=== PATIENT | female | born 1980 | race Caucasian/White ===

== ENCOUNTER 2016-09-10 14:55 | Emergency (ER) | payer OTHER ==
[2016-09-10 15:03] VITALS: O2SAT 100
--- NOTE | 2016-09-10 16:23 | C.PDOC ---
History Of Present Illness 36 year old female presents to the ED with complaints of nausea, vomiting, and epigastric pain starting last night. Patient states she drank a lot last night, notes that her abdominal pain and vomiting resolved, however nausea persists. She denies chest pain, cough, fever, diarrhea, dysuria. Time Seen by Provider: 09/10/16 15:16 Chief Complaint (Nursing): Abdominal Pain History Per: Patient History/Exam Limitations: no limitations Onset/Duration Of Symptoms: Days Current Symptoms Are (Timing): Still Present Severity: Mild Radiation Of Pain To:: None Associated Symptoms: Nausea. denies: Vomiting Abnormal Vaginal Bleeding: No Past Medical History Reviewed: Historical Data, Nursing Documentation, Vital Signs Vital Signs: Last Vital Signs Temp 98.4 F 09/10/16 16:24 Pulse 84 09/10/16 16:24 Resp 17 09/10/16 16:24 BP 112/72 09/10/16 16:24 Pulse Ox 100 09/10/16 16:29 - Medical History PMH: No Chronic Diseases Family History: States: No Known Family Hx - Social History Hx Alcohol Use: Yes Hx Substance Use: No - Immunization History Hx Tetanus Toxoid Vaccination: Yes Hx Influenza Vaccination: No Hx Pneumococcal Vaccination: No Review Of Systems Except As Marked, All Systems Reviewed And Found Negative. Constitutional: Negative for: Fever, Chills Cardiovascular: Negative for: Chest Pain, Palpitations Respiratory: Negative for: Shortness of Breath Gastrointestinal: Positive for: Nausea, Vomiting (Resolved). Negative for: Abdominal Pain, Diarrhea Genitourinary: Negative for: Dysuria, Hematuria Physical Exam - Physical Exam Appears: Non-toxic, Other (+Mild discomfort) Skin: Normal Color, Warm, Dry Head: Normacephalic Eye(s): bilateral: Normal Inspection Oral Mucosa: Moist Cardiovascular: Rhythm Regular Respiratory: Normal Breath Sounds, No Rales, No Rhonchi, No Wheezing Gastrointestinal/Abdominal: Normal Exam, Bowel Sounds, Soft, No Tenderness, No Guarding, No Rebound Extremity: Normal ROM Neurological/Psych: Oriented x3 ED Course And Treatment O2 Sat by Pulse Oximetry: 100 (Room air) Pulse Ox Interpretation: Normal Progress Note: UPreg POC and PO challenge ordered. Patient given Zofran ODT. Reevaluation Time: 16:20 Reassessment Condition: Improved (On reassessment, patient states her nausea has resolved and she feels better. She was given rx for Zofran ODT and instructed to follow up with PMD/clinic in 1-2 days. She understands she should return to ED if symptoms worsen.) Disposition Counseled Patient/Family Regarding: Diagnosis, Need For Followup - Disposition Referrals: [facility] [Outside] Disposition: HOME/ ROUTINE Disposition Time: 16:20 Condition: STABLE Additional Instructions: BEBIDA DE FLUIDOS KIRTI HOY USE LOS MEDICAMENTOS QUE CARLOS NECESARIOS DEVUELVA A LA KIANA DE EMERGENCIA SI LOS SNTOMAS EMPEORARAN Prescriptions: Ondansetron [Zofran Odt] 4 mg PO Q8 PRN #12 odt PRN Reason: Nausea/Vomiting Instructions: Acute Nausea and Vomiting (ED) Forms: General Discharge Instructions Print Language: TAMAZIGHT - Clinical Impression Clinical Impression: Hangover effect, Acute alcohol overingestion - Scribe Statement The provider has reviewed the documentation as recorded by the Scribe Xochitl Rincon. Provider Attestation: All medical record entries made by the Scribe were at my direction and personally dictated by me. I have reviewed the chart and agree that the record accurately reflects my personal performance of the history, physical exam, medical decision making, and the department course for this patient. I have also personally directed, reviewed, and agree with the discharge instructions and disposition.
[2016-09-10 16:25] VITALS: BP 112/72; PULSE 84; RESP 17; TEMP 98.4
== END 2016-09-10 16:43 | disposition home or self-care (01) ==
LOC: C.ER 14:55
DX: F10.129 Alcohol abuse with intoxication, unspecified (principal); Y90.9 Presence of alcohol in blood, level not specified